=== PATIENT | female | born 1995 | race Caucasian/White ===

== ENCOUNTER → 2020-04-11 13:08 | Outpatient (BNVA) | payer OTHER, SELFPAY | PROVIDERS: Visit Provider Advanced Practice Midwife | DX: O09.219 Supervision of pregnancy with history of pre-term labor, unspecified trimester (principal); Z3A.00 Weeks of gestation of pregnancy not specified | CPT/HCPCS: 99211 ==

== ENCOUNTER → 2020-05-01 10:37 | Outpatient (BNVA) | payer OTHER, SELFPAY | PROVIDERS: PCP Internal Medicine; Visit Provider Advanced Practice Midwife | DX: Z76.89 Persons encountering health services in other specified circumstances (principal) ==

== ENCOUNTER 2020-05-03 14:36 | Outpatient (REF) | payer OTHER, SELFPAY ==
[2020-05-03 15:39] LABS: MANUAL DIFF FLAG NO
[2020-05-03 15:42] LABS: Basophils Percent Auto 0.2 % (0-2); Eosinophils Absolute Auto 0.2 X10*3/uL (0.0-0.4); Eosinophils Percent Auto 1.3 % (0-4); Hematocrit 32.4 % (37-47); Hemoglobin 11.2 g/dl (12.0-16.0); Imm Gran Abs Auto 0.06 X10*3/uL (0.00-0.03); Imm Gran Pct Auto 0.5 % (0.0-0.4); Lymphocytes Absolute Auto 1.9 X10*3/uL (1.2-4.9); Lymphocytes Percent Auto 16.6 % (20-40); Mean Corpuscular HGB Conc 34.6 g/dl (31.0-35.0); Mean Corpuscular Hemoglobin 31.3 pg (27.0-33.0); Mean Corpuscular Volume 90.5 fL (80-98); Mean Platelet Volume 10.5 fL (9.4-12.3); Monocytes Absolute Auto 0.7 X10*3/uL (0.1-1.2); Monocytes Percent Auto 6.4 % (2-11); Neutrophils Absolute Auto 8.4 X10*3/uL (2.0-8.3); Platelet Count 312 X10*3/uL (160-400); Red Blood Count 3.58 X10*6/uL (4.20-5.50); Red Cell Distribution Width 12.6 % (11.0-16.0); White Blood Count 11.2 X10*3/uL (4.8-10.8)
[2020-05-03 16:27] LABS: Amphetamine Screen Urine Not Detected (Not Detect); Barbiturates, Urine Not Detected (Not Detect); Benzodiazepines Screen Urine Not Detected (Not Detect); Cannabinoid Screen Urine POSITIVE (Not Detect); Cocaine Screen Urine Not Detected (Not Detect); Opiate Screen Urine Not Detected (Not Detect); Phencyclidine Screen Urine Not Detected (Not Detect); Syphilis Screen Nonreactive (Nonreactive)
[2020-05-03 16:31] LABS: Thyroid Stimulating Hormone 0.69 uIU/mL (0.32-4.0)
[2020-05-06 08:05] LABS: HBsAGNum1 0.28 S/CO (0.00-0.99); Hepatitis B Surface Antigen Negative (Negative)
[2020-05-06 08:30] LABS: HIV AB/AG Nonreactive (Nonreactive); HIV Num 1 0.15 S/CO (0.00-0.99); ~HepC Num1 0.11 S/CO (0.00-0.79); ~Hepatitis C Antibody Nonreactive (Nonreactive)
== END 2020-05-03 14:37 | disposition home or self-care (01) ==
LOC: HO.LAB 14:36
PROVIDERS: PCP Internal Medicine; Visit Provider Advanced Practice Midwife
DX: O26.899 Other specified pregnancy related conditions, unspecified trimester (principal); R53.83 Other fatigue
CPT/HCPCS: 36415; 80307; 84443; 85025; 86762; 86780; 86787; 86803; 86850; 86900; 86901; 87086; 87340; 87389

== ENCOUNTER 2020-05-22 09:04 | Outpatient (REF) | payer OTHER, SELFPAY ==
[2020-05-23 11:09] LABS: BV Int Neg Control Negative (Negative); BV Int Pos Control Positive (Positive)
[2020-05-25 06:37] LABS: CT PCR NOT DETECTED (Not Detect.); NG PCR NOT DETECTED (Not Detect.)
== END 2020-05-22 09:05 | disposition home or self-care (01) ==
LOC: HO.LAB 09:04
PROVIDERS: PCP Internal Medicine; Visit Provider Advanced Practice Midwife
DX: Z34.80 Encounter for supervision of other normal pregnancy, unspecified trimester (principal)
CPT/HCPCS: 87480; 87491; 87510; 87591; 87660; 88142

== ENCOUNTER 2020-05-22 10:41 | Outpatient (REF) | payer OTHER, SELFPAY ==
--- NOTE | 2020-05-22 10:49 | US_ITS ---
EXAMINATION: FIRST TRIMESTER OB ULTRASOUND CLINICAL INFORMATION: No heart tone. Check viability. COMPARISON: None TECHNIQUE: Transabdominal pelvic ultrasound was performed. FINDINGS: There is a single viable intrauterine . [place]-rump length measures 5.4 cm suggesting gestational age of 12 weeks 1 day with estimated date of delivery of 12/03/2020. heart rate is 167 bpm. A yolk sac is not seen. The maternal ovaries are normal. There is no fluid in the maternal pelvis. US/US OB <= 14 weeks fetus IMPRESSION: Single viable intrauterine . From today's measurements gestational age is estimated at 12 weeks 1 day with estimated date of delivery of 12/03/2020.
== END 2020-05-22 10:42 | disposition home or self-care (01) ==
LOC: HO.US 10:41
PROVIDERS: PCP Internal Medicine; Visit Provider Advanced Practice Midwife
DX: Z34.80 Encounter for supervision of other normal pregnancy, unspecified trimester (principal)
CPT/HCPCS: 76801; 81003; 90686

== ENCOUNTER 2020-05-31 13:34 | Outpatient (REF) | payer OTHER, SELFPAY ==
--- NOTE | 2020-05-31 13:46 | US_ITS ---
EXAMINATION: OBSTETRICAL ULTRASOUND, FIRST TRIMESTER HISTORY: 25-year-old at 13.3 weeks NT screening COMPARISON: 05/22/2020 TECHNIQUE: Real time transabdominal imaging with color and M-mode Doppler. FINDINGS: A single, live IUP CRL of 67 mm c/w 13.1wks is noted. Heart Rate: 135 beats per minute. Normal yolk sac seen. NT was 1.8.mm. NB Present The embryo appears sonographically wnl for this GA. Left ovary is within normal limits. The right ovary was not visible today. GESTATIONAL AGE: 1. Established GA: 13.3 wks 2. GA from [facility]: 13.1 wks ESTIMATED DATE OF DELIVERY: 1. Established INEZ: 12/03/2020 2. INEZ from [facility]: 12/05/2020 US/US OB 1T nuc measure IMPRESSION: 1. Single live IUP 2. Size equals dates 3. NT of 1.8 mm MFM Consultation: I reviewed the ultrasound findings along with significance of NT measurement. The NT of less than 3mm is generally reassuring. However, the sensitivity for T21 detection is only 60%. I reviewed the availability of serum aneuploidy screening which includes cell-free DNA and placental protein based tests. I discussed the sensitivity, false-positive rate, and other limitations associated with each test. I also reviewed the availability of invasive diagnostic tests that are associated small but definite risk of miscarriage. We also reviewed the differences between screening tests and diagnostic tests. After our discussion, she opted for the First trimester screening that is based on cell-free DNA or non-invasive testing (NIPT). The result will be faxed to your office in approximately 7 days. A follow up at 18 weeks for survey has been scheduled. Thank you very much for this referral. Majority of this visit was spent reviewing her care and counselling her in face to face time: Time spent 20 min.
== END 2020-05-31 13:35 | disposition home or self-care (01) ==
LOC: HO.US 13:34
PROVIDERS: PCP Internal Medicine; Visit Provider Advanced Practice Midwife
DX: Z34.01 Encounter for supervision of normal first pregnancy, first trimester (principal); Z3A.13 13 weeks gestation of pregnancy
CPT/HCPCS: 76813

== ENCOUNTER 2020-06-19 10:37 | Outpatient (REF) | payer OTHER, SELFPAY ==
[2020-06-19 12:39] LABS: Alanine Aminotransferase 43 U/L (0-31); Aspartate Amino Transferase 34 U/L (5-31); Blood Urea Nitrogen 10 mg/dL (9-16); Uric Acid 3.6 mg/dL (2.4-5.7)
[2020-06-19 13:42] LABS: Creatinine Urine 143.37 mg/dL; Protein/Creatinine Ratio, Ur 0.07 (<0.2); Total Protein Urine Random 10 mg/dL (<12)
== END 2020-06-19 10:38 | disposition home or self-care (01) ==
LOC: HO.LAB 10:37
PROVIDERS: Absent Provider Advanced Practice Midwife; PCP Internal Medicine; Visit Provider Advanced Practice Midwife
DX: O09.299 Supervision of pregnancy with other poor reproductive or obstetric history, unspecified trimester (principal)
CPT/HCPCS: 36415; 84156; 84450; 84460; 84520; 84550; 86850; 86900; 86901; 99212

== ENCOUNTER 2020-07-12 11:04 | Outpatient (REF) | payer OTHER, SELFPAY ==
--- NOTE | 2020-07-12 11:12 | US_ITS ---
EXAMINATION: US OBSTETRICAL CLINICAL INFORMATION: 25-year-old at 19.3 weeks of gestation Suspected anomaly COMPARISON: 05/31/2020 TECHNIQUE: Real-time transabdominal ultrasound was performed using C1-5 megahertz transducer. FINDINGS: A single, active, fetus is seen in vertex presentation. The placenta is posterior without previa, and the amniotic fluid volume is wnl. MEASUREMENTS: 1. Biparietal Diameter: 4.3 cm; 19.1 wks 2. Occipital Frontal Diameter: 5.5 cm 3. Head Circumference: 16.3 cm; 19.1 wks 4. Abdominal Circumference: 13.9 cm; 19.2 wks 5. Femur Length: 3.1 cm; 19.4 wks 6. Humerus Length: 2.95 cm; 19.5 wks 7. Tibia Length: 2.58 cm; 19.2 wks 8. Ulna Length: 2.7 cm; 19.5 wks 9. Lateral ventricle: 0.62 cm 10. Cerebellum: 1.84 cm; 19.1 wks 11. Cisterna Magna: 0.43 cm 12. Nuchal Fold: 2.64 mm 13. Heart Rate: 158 beats per minute Rt ovary: normal Lt ovary: normal Cervical length 3.2 cm on T/A. GESTATIONAL AGE: 1. Established GA: 19.3 wks 2. GA from [facility]: 19.2 wks ESTIMATED DATE OF DELIVERY: 1. Established INEZ: 12/03/2020 2. INEZ from [facility]: 12/04/2020 ANATOMY: The visualized anatomy includes but not limited to: 1. Cranium: Normal 2. Intracranial anatomy: cavum septum pellucidi, lateral ventricles, choroid plexus, cerebellum, posterior fossa, third and fourth ventricles. 3. face: orbits, lip/palate, profile, nasal bone 4. Heart: four-chamber view of the heart, ventricular septum, foramen ovale, pulmonary vein, left and right outflow tracts, three-vessel view, 3 vessel trachea view, aortic and ductal arches, situs.. 5. Diaphragm: Normal 6. Abdominal wall: Normal 7. Cord Insertion: Normal 8. Spine: Cervical, thoracic, lumbar, sacral. 9. Stomach: Normal size and shape 10. Right Kidney: Normal 11. Left Kidney: Normal 12. 3 vessel cord: Normal 13. Upper extremity: Open hands, fifth digit. 14. Lower extremity: Tibia, fibula, bilateral feet. 15. Bladder: Normal 16. Genitalia: Male, patient aware US/US OB /maternal detail IMPRESSION: 1. Single, living, intrauterine with appropriate biometry. 2. Normal survey DISCUSSION: I reviewed today's ultrasound findings. We discussed the limitations of ultrasound in diagnosing aneuploidy and other congenital abnormalities. I reviewed the differences between screening test and diagnostic test. Amniocentesis was discussed and declined. She was informed that the baseline incidence of congenital abnormalities is approximately 3-5%. Not all these conditions are diagnosable in utero. RECOMMENDATIONS: Thank you for allowing me to participate in her care. Visiting time 20 minutes. Majority of this visit was spent reviewing and discussing her care.
== END 2020-07-12 11:05 | disposition home or self-care (01) ==
LOC: HO.US 11:04
PROVIDERS: Visit Provider Advanced Practice Midwife
DX: Z34.80 Encounter for supervision of other normal pregnancy, unspecified trimester (principal); Z36.3 Encounter for antenatal screening for malformations
CPT/HCPCS: 76811

== ENCOUNTER → 2020-07-17 12:04 | Outpatient (BNVA) | payer OTHER, SELFPAY | PROVIDERS: Visit Provider Advanced Practice Midwife | DX: Z76.89 Persons encountering health services in other specified circumstances (principal) | CPT/HCPCS: 99212 ==

== ENCOUNTER → 2020-08-14 13:56 | Outpatient (BNVA) | payer OTHER, SELFPAY | PROVIDERS: Visit Provider Advanced Practice Midwife | DX: Z34.92 Encounter for supervision of normal pregnancy, unspecified, second trimester (principal) | CPT/HCPCS: 81003; 99212 ==

== ENCOUNTER → 2020-09-03 13:49 | Outpatient (BNVA) | payer OTHER, SELFPAY | PROVIDERS: Visit Provider Advanced Practice Midwife | DX: S30.854A Superficial foreign body of vagina and vulva, initial encounter (principal) | CPT/HCPCS: 99212 ==

== ENCOUNTER → 2020-09-11 10:44 | Outpatient (BNVA) | payer OTHER, SELFPAY | PROVIDERS: PCP Internal Medicine; Visit Provider Advanced Practice Midwife | DX: Z34.92 Encounter for supervision of normal pregnancy, unspecified, second trimester (principal); Z3A.27 27 weeks gestation of pregnancy | CPT/HCPCS: 81003; 99212 ==

== ENCOUNTER 2021-06-03 11:55 | Outpatient (REF) | payer OTHER, SELFPAY ==
[2021-06-03 12:24] LABS: MANUAL DIFF FLAG NO
[2021-06-03 13:21] LABS: Basophils Percent Auto 0.5 % (0-2); Eosinophils Absolute Auto 0.5 X10*3/uL (0.0-0.4); Hematocrit 36.5 % (37.0-47.0); Hemoglobin 12.2 g/dl (12.0-16.0); Imm Gran Abs Auto 0.02 X10*3/uL (0.00-0.03); Imm Gran Pct Auto 0.3 % (0.0-0.4); Lymphocytes Percent Auto 31.3 % (20-40); Mean Corpuscular HGB Conc 33.4 g/dl (31.0-35.0); Mean Corpuscular Hemoglobin 29.8 pg (27.0-33.0); Mean Corpuscular Volume 89.2 fL (80.0-98.0); Mean Platelet Volume 10.9 fL (9.4-12.3); Monocytes Absolute Auto 0.5 X10*3/uL (0.1-1.2); Monocytes Percent Auto 7.7 % (2-11); Neutrophils Absolute Auto 3.4 x10*3/uL (2.0-8.3); Neutrophils Percent Auto 52.2 % (45-73); Platelet Count 369 X10*3/uL (160-400); Red Blood Count 4.09 X10*6/uL (4.20-5.50); Red Cell Distribution Width 13.6 % (11.0-16.0); White Blood Count 6.4 X10*3/uL (4.8-10.8)
[2021-06-03 13:33] LABS: Alanine Aminotransferase 25 U/L (0-31); Albumin Level 4.2 g/dL (3.5-5.0); Alkaline Phosphatase 74 U/L (39-117); Amylase 92 U/L (28-100); Anion Gap 9 (12-20); Aspartate Amino Transferase 18 U/L (5-31); Bilirubin Total 0.3 mg/dL (0.0-1.0); Blood Urea Nitrogen 16 mg/dL (9-16); Calcium 9.5 mg/dL (8.4-10.2); Carbon Dioxide 28 mmol/L (22-29); Chloride 108 mmol/L (96-108); Estimated Glomerular Filt Rate > 60; Gamma Glutamyl Transpeptidase 25 U/L (7-33); Glucose Random 93 mg/dL (60-115); Potassium 4.1 mmol/L (3.3-5.1); Sodium 141 mmol/L (135-145); Total Protein 7.6 g/dL (6.5-8.0)
[2021-06-03 13:43] LABS: TSH reflex Free T4 1.22 uIU/mL (0.32-4.0)
[2021-06-03 13:56] LABS: Folate 7.2 ng/mL (> or = 4.0); Vitamin B12 490 pg/mL (200-900)
[2021-06-10 14:16] LABS: Vitamin D 25-OH, D2 <4 ng/mL; Vitamin D 25-OH, D3 19 ng/mL; Vitamin D 25-OH, Total 19 ng/mL (30-100)
== END 2021-06-03 11:56 | disposition home or self-care (01) ==
LOC: HO.LAB 11:55
PROVIDERS: PCP Internal Medicine; Visit Provider Nurse Practitioner Acute Care
DX: K21.9 Gastro-esophageal reflux disease without esophagitis (principal)
CPT/HCPCS: 36415; 80053; 82150; 82306; 82607; 82746; 82977; 84443; 85025

== ENCOUNTER 2021-09-05 17:12 | Outpatient (REF) | payer OTHER, SELFPAY ==
[2021-09-05 17:27] LABS: MANUAL DIFF FLAG NO
[2021-09-05 17:32] LABS: Basophils Percent Auto 0.3 % (0-2); Eosinophils Absolute Auto 0.5 X10*3/uL (0.0-0.4); Eosinophils Percent Auto 8.5 % (0-4); Hematocrit 34.1 % (37.0-47.0); Hemoglobin 11.4 g/dl (12.0-16.0); Imm Gran Abs Auto 0.02 X10*3/uL (0.00-0.03); Imm Gran Pct Auto 0.3 % (0.0-0.4); Lymphocytes Absolute Auto 2.3 X10*3/uL (1.2-4.9); Lymphocytes Percent Auto 37.2 % (20-40); Mean Corpuscular HGB Conc 33.4 g/dl (31.0-35.0); Mean Corpuscular Hemoglobin 29.8 pg (27.0-33.0); Mean Platelet Volume 10.2 fL (9.4-12.3); Monocytes Absolute Auto 0.6 X10*3/uL (0.1-1.2); Monocytes Percent Auto 9.3 % (2-11); Neutrophils Absolute Auto 2.7 x10*3/uL (2.0-8.3); Neutrophils Percent Auto 44.4 % (45-73); Platelet Count 295 X10*3/uL (160-400); Red Blood Count 3.83 X10*6/uL (4.20-5.50); Red Cell Distribution Width 13.1 % (11.0-16.0); White Blood Count 6.1 X10*3/uL (4.8-10.8)
[2021-09-05 18:01] LABS: Alanine Aminotransferase 17 U/L (0-31); Albumin Level 4.1 g/dL (3.5-5.0); Alkaline Phosphatase 67 U/L (39-117); Anion Gap 12 (12-20); Aspartate Amino Transferase 14 U/L (5-31); Bilirubin Total 0.5 mg/dL (0.0-1.0); Blood Urea Nitrogen 11 mg/dL (9-16); Calcium 9.4 mg/dL (8.4-10.2); Carbon Dioxide 26 mmol/L (22-29); Chloride 108 mmol/L (96-108); Estimated Glomerular Filt Rate > 60; Glucose Random 74 mg/dL (60-115); Lipase 34 U/L (8-78); Potassium 3.9 mmol/L (3.3-5.1); Sodium 142 mmol/L (135-145); Total Protein 7.4 g/dL (6.5-8.0)
[2021-09-05 18:21] LABS: Vitamin D 25-OH Total 22.3 ng/mL (>30)
== END 2021-09-05 17:13 | disposition home or self-care (01) ==
LOC: HO.LAB 17:12
PROVIDERS: PCP Internal Medicine; Visit Provider Nurse Practitioner Family
DX: R10.9 Unspecified abdominal pain (principal); E55.9 Vitamin D deficiency, unspecified
CPT/HCPCS: 36415; 80053; 82306; 83690; 85025

== ENCOUNTER 2021-09-17 11:40 | Emergency (ER) | payer OTHER, SELFPAY ==
[2021-09-17 11:55] VITALS: BP 118/72; PULSE 100; RESP 18; TEMP 36.1; O2SAT 99; BMI 23.5
--- NOTE | 2021-09-17 12:12 | ED.GENADULT ---
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 No fevers or chills. Patient has had some body aches. +cough. No vomiting, diarrhea, abdominal pain, neck pain or stiffness, headache, urinary symptoms, vaginal discharge. Patient was concerned because her sore throat began after having oral sex. Related Data Previous Rx's Medication Instructions Recorded hydrocortisone 1 % topical cream 1 appl TOPICAL TID PRN #28.4 g 06/03/21 (Anti-Itch (hydrocortisone)) omeprazole 20 mg capsule,delayed 20 mg PO DAILY #30 cap 09/05/21 release cholecalciferol (vitamin D3) 25 25 mcg PO DAILY #90 tab 09/12/21 mcg (1,000 unit) tablet (Vitamin D3) acetaminophen 325 mg tablet 650 mg PO Q4H PRN #30 tab 09/17/21 (Tylenol) amoxicillin 500 mg capsule 500 mg PO BID #20 cap 09/17/21 Allergies Allergy/AdvReac Type Severity Reaction Status Date / Time No Known Allergies Allergy Verified 09/05/21 16:40 [No Known Allergies*] Review of Systems Review of Systems: Yes all other systems are reviewed and are negative Constitutional: Constitutional: Reports no additional constitutional complaints, Reports body ache(s), Denies chills, Denies fever(s) and Denies weakness Eyes: Eyes: Reports no additional eye complaints and Denies change in vision ENT: Reports system reviewed and no additional complaints, except as documented, Denies dizziness, Denies nasal congestion, Denies nasal discharge, Denies neck pain and Reports sore throat Cardiovascular: Cardiovascular: Reports no additional cardiovascular complaints, Denies chest pain, Denies leg edema and Denies dyspnea Respiratory: Respiratory: Reports no additional respiratory complaints, Reports cough and Denies dyspnea Gastrointestinal: Gastrointestinal: Reports no additional gastrointestinal complaints, Denies abdominal pain, Denies diarrhea, Denies nausea and Denies vomiting Genitourinary: Genitourinary: Reports no additional female genitourinary complaints and Denies urinary incontinence Musculoskeletal: Musculoskeletal: Reports no additional musculoskeletal complaints, Denies back pain, Denies arthralgias, Denies joint swelling, Denies neck pain, Denies numbness and Denies tingling Integumentary/Breasts: Skin/Breast: Reports system reviewed and no additional complaints, except as docu and Denies rash Neurologic: Reports system reviewed and no additional complaints, except as documented, Denies dizziness, Denies numbness, Denies tingling and Denies weakness PMFSH Past Medical History Attestation statement: The following information was validated with the patient. Source: old records reviewed and nursing notes reviewed Medical History Anemia Gastritis GERD (gastroesophageal reflux disease) Headache Surgical History No history of previous surgery Family History Family History Mother Hx of breast cancer Hx of ovarian cancer Sister Hx of thyroid cancer Hx of ovarian cancer Father Hx of type 2 diabetes mellitus Hx of primary hypertension Maternal Grandmother Hx of ovarian cancer Hx of type 2 diabetes mellitus Maternal Grandfather No problems noted. Paternal Grandmother Hx of diabetes mellitus Hx of kidney disease Paternal Grandfather No problems noted. Brother No problems noted. Sister No problems noted. Social History Social History Household Members: Children Are you a primary resident care technician to a significant other at home: No Do you presently have visiting nurse or other home services: No Alcohol intake: never Patient Tobacco Use Status: Never used Tobacco Tobacco use type: Cigarette e-Cigarette/Vaping Use: Never Used Second Hand Smoke Exposure: No Substance Use Type: Marijuana Advance Directives: No Advance Directives Information Provided: Yes Patient : No service: No Current occupational status: unemployed Current occupational exposures/hazards: No Physical Exam ED Vital Signs: Vital Signs - 24 hr 09/17/21 11:55 Temperature 97.0 F Pulse Rate 100 Respiratory Rate 18 Blood Pressure 118/72 Pulse Oximetry 99 BMI result Body Mass Index 23.5 Const General: cooperative, healthy appearing, comfortable and no acute distress Orientation/consciousness: patient oriented x3 Limitations: no limitations HENMT Head: Yes normal to inspection Ears: hearing grossly normal bilaterally and TM's normal bilaterally General nose exam: Normal external nose present Face and sinus: Yes normal facial exam Mouth: Normal oral and palatal mucosa present Teeth and gingiva: dentition normal Throat: Yes uvula midline and Yes abnormal tonsil (bilateral erythema, swelling and exudate ) Eyes General: appearance normal, both eyes and all related structures Pupils: Equal, round and reactive pupils present Neck Neck: Yes normal visual inspection, Yes full ROM, Yes no lymphadenopathy and Yes no meningeal signs Chest Chest palpation & inspection: normal inspection of the chest Resp Effort & Inspection: normal respiratory effort Auscultation: clear to auscultation bilaterally Cardio Rate: regular rate Rhythm: regular rhythm Peripheral pulses: Peripheral pulses 2+ throughout GI Inspection: Yes normal to inspection Palpation (GI): Soft to palpation and nontender General: Yes no CVA tenderness Back/Spine/Pelvis Back: no CVA tenderness Thoracic/Lumbar Spine: thoracic and lumbar spine normal to inspection Skin General skin exam: no rashes or lesions noted Neuro General: patient oriented x3, moves all extremities and no meningeal signs Cranial nerves: Yes Equal, round and reactive pupils present Cognition (Neuro): normal cognition Extrem General: Yes normal to inspection Course Course Course Narrative: 26 yo female here with sore throat, cough, body aches x several days. Rapid strep +. Patient concerned that she had recent oral sex and thought this might be related. We discussed less likely gonococcal infection with strep testing + here. Will treat with course of antibiotics, recommend supportive care and follow-up with primary care doctor in several days for persistent symptoms Reviewed worrisome signs and symptoms of when to return to the emergency department. Comfortable discharge home Medical Decision Making Medical Records Medical records reviewed: Yes I reviewed the patient's medical records. Lab Data Lab results reviewed: Yes I reviewed the patient's lab results. Labs: Lab Results 09/17/21 Range/Units 12:02 S. pyogenes GrpA ОЛЕГ Positive A (Negative) Discharge Plan Discharge Clinical Impression: Pharyngitis Patient Disposition: Home, Self-Care Instructions: Pharyngitis (ED) Additional Instructions: Your Test is positive for strep throat saltwater gargle Alternate Motrin and Tylenol for pain Eat soft foods Prescriptions: New amoxicillin 500 mg capsule 500 mg PO BID Qty: 20 0RF acetaminophen [Tylenol] 325 mg tablet 650 mg PO Q4H PRN (Reason: pain) Qty: 30 0RF No Action cholecalciferol (vitamin D3) [Vitamin D3] 25 mcg (1,000 unit) tablet 25 mcg PO DAILY Qty: 90 0RF hydrocortisone [Anti-Itch (HC)] 1 % cream 1 appl topical TID PRN (Reason: skin irritation) Qty: 28.4 0RF omeprazole 20 mg capsule,delayed release(DR/EC) 20 mg PO DAILY Qty: 30 0RF Referrals: Pippa Saha MD [Primary Care Provider] - 5 days (For persistent symptoms) Print Language: [place]ian
[2021-09-17 12:14] LABS: Strep A Nucleic Acid Positive (Negative)
[2021-09-17] MEDS: Amoxicillin 500 MG CAPSULE PO (12:54)
== END 2021-09-17 13:05 | disposition home or self-care (01) ==
PROVIDERS: Emergency Provider Emergency Medicine Emergency Medical Services; PCP Internal Medicine
DX: M79.10 Myalgia, unspecified site (principal); R07.0 Pain in throat; R50.9 Fever, unspecified; R05.9 Cough, unspecified; F17.210 Nicotine dependence, cigarettes, uncomplicated; Z71.6 Tobacco abuse counseling; Z79.899 Other long term (current) drug therapy
CPT/HCPCS: 36415; 87651; 99283

== ENCOUNTER 2021-12-27 22:40 | Emergency (ER) | payer OTHER, SELFPAY ==
[2021-12-28 00:38] VITALS: BP 123/77; PULSE 63; RESP 16; TEMP 37; O2SAT 100; BMI 21.0
--- NOTE | 2021-12-28 01:07 | ED_ITS ---
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) Relieving factors: nothing Context: other (work exposures) Associated symptoms: nasal congestion Treatments prior to arrival: none Related Data Previous Rx's Medication Instructions Recorded hydrocortisone 1 % topical cream 1 appl topical TID PRN skin 06/03/21 (Anti-Itch (hydrocortisone)) irritation #28.4 grams acetaminophen 325 mg tablet 650 mg PO Q4H PRN pain #30 tabs 09/17/21 (Tylenol) amoxicillin 500 mg capsule 500 mg PO BID #20 caps 09/17/21 promethazine 25 mg tablet 25 mg PO BID PRN nausea and 09/18/21 vomiting 5 days #10 tabs omeprazole 20 mg capsule,delayed 20 mg PO DAILY #30 caps 11/13/21 release cholecalciferol (vitamin D3) 25 25 mcg PO DAILY #90 tabs 12/16/21 mcg (1,000 unit) tablet (Vitamin D3) amoxicillin 500 mg capsule 500 mg PO BID 7 days #14 caps 12/28/21 fluticasone propionate 50 1 spray intranasal DAILY PRN 12/28/21 mcg/actuation nasal allergy symptoms #16 grams spray,suspension Allergies Allergy/AdvReac Type Severity Reaction Status Date / Time No Known Allergies Allergy Verified 09/05/21 16:40 [No Known Allergies*] Review of Systems Review of Systems: Constitutional : No Fever, No Chills ENT/Mouth : No sore throat, No Rhinorrhea, pos sinus pain, pos congestion Eyes: No Eye Pain, No Swelling, No Redness Cardiovascular : No Chest Pain, No SOB Respiratory : No Cough, No Sputum, No Wheezing Gastrointestinal : No Nausea, No Vomiting, No Diarrhea Genitourinary : No Dysuria, No Urinary Frequency, No Hematuria, Musculoskeletal : No joint pain, No Myalgias, No Joint Swelling Skin : No Skin Lesions, No rash Neuro : No Weakness, No Numbness, No Dizziness, No Headache PMF Past Medical History Attestation statement: The following information was validated with the patient. Medical History Anemia Gastritis GERD (gastroesophageal reflux disease) Headache Surgical History No history of previous surgery Family History Family History Mother Hx of breast cancer Hx of ovarian cancer Sister Hx of thyroid cancer Hx of ovarian cancer Father Hx of type 2 diabetes mellitus Hx of primary hypertension Maternal Grandmother Hx of ovarian cancer Hx of type 2 diabetes mellitus Maternal Grandfather No problems noted. Paternal Grandmother Hx of diabetes mellitus Hx of kidney disease Paternal Grandfather No problems noted. Brother No problems noted. Sister No problems noted. Social History Social History Household Members: Children Are you a primary school childcare attendant to a significant other at home: No Do you presently have visiting nurse or other home services: No Alcohol intake: never Patient Tobacco Use Status: Never used Tobacco Tobacco use type: Cigarette e-Cigarette/Vaping Use: Never Used Second Hand Smoke Exposure: No Substance Use Type: Marijuana Advance Directives: No Advance Directives Information Provided: Yes service: No Current occupational status: unemployed Current occupational exposures/hazards: No Physical Exam Vital Signs: Vital Signs: Last Vital Signs Temp 98.6 F 12/28/21 00:38 Pulse 63 12/28/21 00:38 Resp 16 12/28/21 00:38 BP 123/77 12/28/21 00:38 Pulse Ox 100 12/28/21 00:38 O2 Del Method 12/28/21 00:38 BMI result Body Mass Index 21.0 Appearance: Alert. Oriented X3. No acute distress. Eyes: Pupils equal, round and reactive to light. ENT: Pharynx normal. boggy turbinates, facial pain over bilateral maxillary sinuses Neck: Normal inspection. Neck supple. CVS: Normal heart rate and rhythm. Pulses normal. Respiratory: No respiratory distress. Breath sounds normal. Abdomen: Soft and nontender. Skin: Skin warm and dry. Normal skin color. Normal skin turgor. Extremities: No lower extremity edema. No calf ttp Neuro: Oriented X 3. No motor deficit. No sensory deficit. MDM - URI/Sore Throat MDM Narrative Medical decision making narrative: 26 yo female with nasal pain, sinus congestion following working with chemicals at work - no resp issues thinks she is allergic to chemicals. She has boggy turbinates and facial pain hx of bacterial sinusitis in the past. At this time will swab for COVId and start on amoxicillin and fluticasone Lab Data Labs: Lab Results 12/28/21 12/28/21 Range/Units 00:52 00:52 COVID-19 ([facility]) Negative (Negative) COVID-19 Clin Com See Note Influenza Type A (ОЛЕГ) Negative (Negative) Influenza Type B (ОЛЕГ) Negative (Negative) Influenza A & B Note See Note Discharge Plan Discharge Clinical Impression: Sinusitis Qualifiers: Sinusitis location: maxillary Chronicity: acute Recurrence: non-recurrent Qualified Code(s): J01.00 - Acute maxillary sinusitis, unspecified Allergic rhinitis Qualifiers: Allergic rhinitis trigger: other Allergic rhinitis seasonality: non-seasonal Qualified Code(s): J30.89 - Other allergic rhinitis Patient Disposition: Home, Self-Care Instructions: Sinusitis (ED), Allergies (ED) Additional Instructions: return to ED for any worsening symptoms or concerns negative COVID and flu you likely have allergic reaction to chemicals at work please try to avoid Prescriptions: New amoxicillin 500 mg capsule 500 mg PO BID 7 Days Qty: 14 0RF fluticasone propionate 50 mcg/actuation spray,suspension 1 spray intranasal DAILY PRN (Reason: allergy symptoms) Qty: 16 0RF Rx Instructions: administer into each nostril No Action promethazine 25 mg tablet 25 mg PO BID PRN (Reason: nausea and vomiting) 5 Days Qty: 10 0RF omeprazole 20 mg capsule,delayed release(DR/EC) 20 mg PO DAILY Qty: 30 0RF cholecalciferol (vitamin D3) [Vitamin D3] 25 mcg (1,000 unit) tablet 25 mcg PO DAILY Qty: 90 0RF amoxicillin 500 mg capsule 500 mg PO BID Qty: 20 0RF acetaminophen [Tylenol] 325 mg tablet 650 mg PO Q4H PRN (Reason: pain) Qty: 30 0RF hydrocortisone [Anti-Itch (HC)] 1 % cream 1 appl topical TID PRN (Reason: skin irritation) Qty: 28.4 0RF Stand Alone Forms: Work/School Release
[2021-12-28 01:22] LABS: IDNOW Serial# 9DB6401D; Influenza A Negative (Negative); Influenza B2 Negative (Negative)
[2021-12-28 01:23] LABS: COVID-19 Test Negative (Negative); IDNOW Serial# 55D5AD1C
== END 2021-12-28 02:10 | disposition home or self-care (01) ==
PROVIDERS: Emergency Medicine; Emergency Provider Emergency Medicine; PCP Internal Medicine
DX: J01.00 Acute maxillary sinusitis, unspecified (principal); J30.89 Other allergic rhinitis; R09.81 Nasal congestion; Z20.822 Contact with and (suspected) exposure to COVID-19; Z79.899 Other long term (current) drug therapy
CPT/HCPCS: 87502; 87635; 99282

== ENCOUNTER 2022-05-13 11:46 | Outpatient (REF) | payer OTHER, SELFPAY ==
[2022-05-13 18:22] LABS: CT PCR NOT DETECTED (Not Detect.); NG PCR NOT DETECTED (Not Detect.)
[2022-05-14 13:58] LABS: BV Int Neg Control Negative (Negative); BV Int Pos Control Positive (Positive)
== END 2022-05-13 11:47 | disposition home or self-care (01) ==
LOC: HO.LNP 11:46
PROVIDERS: Visit Provider Advanced Practice Midwife
DX: T83.84XA Pain due to genitourinary prosthetic devices, implants and grafts, initial encounter (principal); A60.00 Herpesviral infection of urogenital system, unspecified; Z32.02 Encounter for pregnancy test, result negative; Z11.3 Encounter for screening for infections with a predominantly sexual mode of transmission; X58.XXXA Exposure to other specified factors, initial encounter
CPT/HCPCS: 58301; 81025; 87480; 87491; 87510; 87591; 87660; 99212

== ENCOUNTER → 2022-05-14 11:08 | Outpatient (BNVA) | payer OTHER, SELFPAY | PROVIDERS: Visit Provider Advanced Practice Midwife | DX: Z30.42 Encounter for surveillance of injectable contraceptive (principal) | CPT/HCPCS: 96372; 99211 ==

== ENCOUNTER 2022-05-31 08:30 | Emergency (ER) | payer OTHER, SELFPAY ==
[2022-05-31 08:33] VITALS: BP 131/91; PULSE 86; RESP 19; TEMP 36.6; O2SAT 100; BMI 20.9
--- NOTE | 2022-05-31 09:42 | ED.FEMALEGU ---
HPI - Female Genitourinary General Chief complaint: Urogenital-Female Stated complaint: Lower abd pain Time Seen by Provider: 05/31/22 09:05 Source: patient Mode of arrival: ambulatory Limitations: no limitations History of Present Illness HPI Narrative: 27-year-old primarily Tongan-speaking female with past medical history of GERD bland herpes genitalis presents to the emergency department today with a 3 day history of burning with urination and thin yellow/green vaginal discharge with an odor. She describes the pain as burning not the urethra but the external tissue near the urethra. She denies any new sexual partners however she recently from her boyfriend due to her suspicion of him being with other partners. She denies any vaginal bleeding with her LMP at the beginning of May. She denies any fever, chills, abdominal pain, nausea, vomiting. MD elicited complaint: dysuria and vaginal discharge Pertinent past history: STI/STD Onset (ago): day(s) (3) Location of symptoms: external genitalia and vaginal Quality of pain: sharp and burning Consistency: constant Vaginal discharge: yellow and other (thin yellow/green ) Vaginal bleeding: none Urinary symptoms: Dysuria Exacerbating factors: urination Relieving factors: none Associated symptoms: denies other symptoms Treatment prior to arrival: none Sexual activity: Yes Patient : No Date of Last Menstrual Period: 05/14/22 Related Data Home Medications Medication Instructions Recorded Confirmed levonorgestrel 20 mcg/24 hours (8 intrauterine 05/13/22 05/13/22 yrs) 52 mg intrauterine device (Mirena) Previous Rx's Medication Instructions Recorded medroxyprogesterone 150 mg/mL 150 mg IM Q12W #1 mL 05/13/22 intramuscular suspension (Depo-Provera) valacyclovir 1 gram tablet 1,000 mg PO DAILY #30 tabs 05/13/22 doxycycline hyclate 100 mg capsule 100 mg PO BID 7 days #14 caps 05/31/22 Allergies Allergy/AdvReac Type Severity Reaction Status Date / Time No Known Allergies Allergy Verified 05/13/22 11:48 [No Known Allergies*] Review of Systems Review of Systems: In addition to documented HPI above, the additional ROS was obtained: Constitutional: No Weight loss, No Fever, No Chills Cardiovascular: No Chest Pain, No SOB Respiratory: No Cough, No Sputum, No Wheezing Gastrointestinal: No Nausea, No Vomiting, No Diarrhea, No Constipation, No Abdominal pain Genitourinary: No Urinary Frequency, No Hematuria, No Urinary Incontinence/retention, No Urgency, No Flank Pain Musculoskeletal: No joint pain, No Myalgias, No Joint Swelling Skin: No Skin Lesions, No rash Neuro: No Weakness, No Numbness, No Paresthesias Yes all other systems are reviewed and are negative PMFSH Past Medical History Attestation statement: The following information was validated with the patient. Source: old records reviewed Medical History Anemia Gastritis GERD (gastroesophageal reflux disease) Headache Surgical History No history of previous surgery Date of Last Menstrual Period: 05/14/22 Family History Family History Mother Hx of breast cancer Hx of ovarian cancer Sister Hx of thyroid cancer Hx of ovarian cancer Father Hx of type 2 diabetes mellitus Hx of primary hypertension Maternal Grandmother Hx of ovarian cancer Hx of type 2 diabetes mellitus Maternal Grandfather No problems noted. Paternal Grandmother Hx of diabetes mellitus Hx of kidney disease Paternal Grandfather No problems noted. Brother No problems noted. Sister No problems noted. Social History Social History Household Members: Children Are you a primary laboratory animal care veterinarian to a significant other at home: No Do you presently have visiting nurse or other home services: No Alcohol intake: never Patient Tobacco Use Status: Never used Tobacco Tobacco use type: Cigarette e-Cigarette/Vaping Use: Never Used Second Hand Smoke Exposure: No Substance Use Type: Marijuana Advance Directives: No Advance Directives Information Provided: Yes Patient : No service: No Current occupational status: employed Current occupational exposures/hazards: No Cognitive needs: No Hearing needs: No Vision needs: No Physical Exam Vital Signs: Vital Signs: Last Vital Signs Temp 98 F 05/31/22 08:33 Pulse 86 05/31/22 08:33 Resp 19 05/31/22 08:33 BP 131/91 H 05/31/22 08:33 Pulse Ox 100 05/31/22 08:33 O2 Del Method 12/18/22 08:33 BMI result Body Mass Index 20.9 Const: General: cooperative, alert and awake Nutritional Appearance: well nourished Orientation/consciousness: patient oriented x3 Limitations: language barrier HEENT: Head: Yes normal to inspection, Yes normocephalic and Yes atraumatic Ears: hearing grossly normal bilaterally General nose exam: Normal external nose present Face and sinus: Yes normal facial exam and Yes face symmetric Eyes: General: appearance normal, both eyes and all related structures Visual Manzo: normal visual manzo by confrontation Alignment and Position: alignment normal Periorbital: periorbital findings normal Eyelids: Yes eyelids normal Conjunctivae: conjunctivae normal Sclerae: sclerae normal Corneas: corneas normal Pupils: Equal, round and reactive pupils present EOM: EOMs intact bilaterally Neck: Neck: Yes normal visual inspection, Yes full ROM and Yes no lymphadenopathy Chest: Chest palpation & inspection: normal inspection of the chest Resp: Effort & Inspection: normal respiratory effort and not labored Auscultation: clear to auscultation bilaterally, no crackles, no rhonchi and no wheezes Cardio: Rate: regular rate Rhythm: regular rhythm GI: Inspection: Yes normal to inspection Palpation (GI): Soft to palpation and nontender Auscultation: normal bowel sounds : External Female Exam: normal appearance of the urethra, externally tender, No lesion and No laceration Speculum Exam - Vagina: abnormal vaginal discharge (thin yellow/green ) Speculum Exam - Cervix: Cervical tenderness present Bimanual exam- vagina & uterus: Cervical tenderness present Back/Spine/Pelvis: Cervical Spine: cervical ROM normal Thoracic/Lumbar Spine: thoraco-lumbar ROM normal Skin: General skin exam: no rashes or lesions noted Neuro: General: patient oriented x3 Cranial nerves: Yes Equal, round and reactive pupils present Cognition (Neuro): normal cognition Gait exam (Neuro): Normal gait present Motor exam (neuro): 5/5 motor strength present throughout Extrem: General: Yes normal to inspection, Yes full ROM and Yes capillary refill normal Psych: Appearance: grossly normal Mental Status: mental status grossly normal Speech and movement: Normal speech and movement present Affect: normal affect Attitude: cooperative Thought process: Normal thought process present Thought content: Normal thought content present Medications Administered Discontinued Medications Generic Name Dose Route Start Last Admin Trade Name Freq PRN Reason Stop Dose Admin Ceftriaxone Sodium 500 mg/ 0 mg 05/31/22 09:39 05/31/22 09:46 Lidocaine HCl 1 ml IM 05/31/22 09:40 500 kit ONCE ONE Administration Doxycycline Monohydrate 100 mg 05/31/22 09:40 05/31/22 09:46 Doxycycline Monohydrate 100 Mg Capsule PO 05/31/22 09:41 100 mg ONCE ONE Administration Medical Decision Making Medical Decision Making MDM Narrative: 27-year-old primarily Tongan-speaking female with past medical history of GERD bland herpes genitalis presents to the emergency department today with a 3 day history of burning with urination and thin yellow/green vaginal discharge with an odor. External vaginal exam showing reddened tissue near urethra, urethra without redness or drainage. Initial exam of vagina with normal looking tissue. No reddness or bleeding. Thin yellow/green vaginal discharge present at introitus of the vagina. Lubricated speculum inserted into vagina to continue exam, however; pt visibly uncomfortable and asking to stop exam. Vaginal swabs obtained to rule in/out STIs as cause of discomfort. Trichomonas swab negative. Urinalysis unremarkable for signs of infection or . Pending swab results for gonorrhea, chlamydia, and bacterial vaginosis. Will contact patient with results once received. Patient safe for discharge. 500 mg IM ceftriaxone given for treatment of presumed gonorrhea and started on doxycycline for treatment of chlamydia with 7 day course doxycycline prescribed to her preferred pharmacy. Educated that we will contact her for results of testing. Educated to inform her current and recent sexual partners of presumed STI so that treatment may be started for partners. HPI, PE, diagnostics, and plan discussed with patient with no unanswered questions at this time. Educated to return to the emergency department with fevers, chills, vaginal discomfort, increased difficulty urinating due to pain, or any other concerning emergent symptom. Recommended follow-up with her primary care provider and physician gynecologist provider for further treatment and follow-up. Lab Data Labs: Lab Results 05/31/22 05/31/22 Range/Units 10:38 10:39 Urine Color Yellow Urine Appearance Clear Urine pH 5.5 (5.0-9.0) Ur Specific [place] 1.025 (1.005-1.025) Urine Protein Negative (Neg-Trace) mg/dL Urine Glucose (UA) Negative (Negative) mg/dL Urine Ketones Negative (Negative) mg/dL Urine Blood Negative (Negative) Urine Nitrite Negative (Negative) Ur Leukocyte Esterase Moderate (2+) H (Negative) Urine RBC 0-2 (0-2) /HPF Urine WBC 0-5 (0-5) /HPF Ur Squamous Epith Cells 0-2 (0-2) /HPF Urine Bacteria None Seen (None Seen) Hyaline Casts 0-2 (0-2) /LPF Urine Test NEGATIVE (NEGATIVE) Discharge Plan Discharge Clinical Impression: STI (sexually transmitted infection), Gonorrhea, Chlamydia, Bacterial vaginosis Patient Disposition: Home, Self-Care Instructions: Vaginal Discharge (ED), Gonorrhea (ED), Bacterial Vaginosis (ED) Prescriptions: New doxycycline hyclate 100 mg capsule 100 mg PO BID 7 Days Qty: 14 0RF No Action Mirena 20 mcg/24 hours (8 yrs) 52 mg intrauterine device intrauterine medroxyprogesterone [Depo-Provera] 150 mg/mL suspension 150 mg IM Q12W Qty: 1 5RF valacyclovir 1 gram tablet 1,000 mg PO DAILY Qty: 30 0RF Rx Instructions: take 1 tablet daily for 3-5 days for outbreak of herpes Referrals: Pippa Saha MD [Primary Care Provider] - Jhon Murray MD [Physician] - Stand Alone Forms: Work/School Release Print Language: Irish
[2022-05-31] MEDS: cefTRIAXone sodium 500 MG, Lidocaine HCl 1 % MPF 1 ML IM (09:46)
[2022-05-31] MEDS: Doxycycline Monohydrate 100 MG CAPSULE PO (09:46)
--- NOTE | 2022-05-31 10:07 | PC.NURSE ---
Nurse practitioner tried to do pelvic exam. pt did not tolerated it and jumped back. practitioner swabbed pt and samples were sent to lab. admin oral and IM antibiotics.
--- NOTE | 2022-05-31 10:40 | PC.NURSE ---
pt. able to urinate. sent urine samples to lab
[2022-05-31 10:49] LABS: Appearance Urine Clear; Color Urine Yellow; Glucose Urine UA Negative (Negative); Leukocyte Esterase Urine Moderate (2+) (Negative); Nitrite Urine Negative (Negative); PH 5.5 (5.0-9.0); Specific Gravity - Urine 1.025 (1.005-1.025); UMIC TRIGGER UACC YES; Urine Blood Negative (Negative); Urine Ketones Negative (Negative); Urine Protein Negative (Neg-Trace)
[2022-05-31 10:50] LABS: UPreg QC Valid YES; Urine Pregnancy NEGATIVE (NEGATIVE)
[2022-05-31 11:05] LABS: Bacteria Urine None Seen (None Seen); Hyaline Casts Urine 0-2 /LPF (0-2); RBC Urine 0-2 /HPF (0-2); Squamous Epithelial Cell Urine 0-2 /HPF (0-2); WBC Urine 0-5 /HPF (0-5)
[2022-05-31 11:45] LABS: CT PCR NOT DETECTED (Not Detect.); NG PCR NOT DETECTED (Not Detect.)
[2022-05-31 14:22] LABS: BV Int Neg Control Negative (Negative); BV Int Pos Control Positive (Positive)
== END 2022-05-31 11:19 | disposition home or self-care (01) ==
PROVIDERS: Nurse Practitioner Family; Emergency Provider Emergency Medicine; PCP Internal Medicine
DX: A54.9 Gonococcal infection, unspecified (principal); N76.0 Acute vaginitis; M54.50 Low back pain, unspecified; R30.0 Dysuria; Z79.899 Other long term (current) drug therapy
CPT/HCPCS: 81001; 81025; 87086; 87480; 87491; 87510; 87591; 87660; 96372; 99284; J0696

== ENCOUNTER → 2022-08-14 13:14 | Outpatient (BNVA) | payer OTHER, SELFPAY | PROVIDERS: PCP Internal Medicine; Visit Provider Advanced Practice Midwife | DX: Z30.42 Encounter for surveillance of injectable contraceptive (principal) | CPT/HCPCS: 96372; 99211 ==

== ENCOUNTER → 2022-11-11 11:07 | Outpatient (BNVA) | payer OTHER, SELFPAY | PROVIDERS: PCP Internal Medicine; Visit Provider Advanced Practice Midwife | DX: Z30.42 Encounter for surveillance of injectable contraceptive (principal) | CPT/HCPCS: 96372; 99211 ==

== ENCOUNTER 2023-06-15 09:38 | Emergency (ER) | payer OTHER, SELFPAY ==
--- NOTE | 2023-06-15 10:36 | PC.NURSE ---
no answer from triage [id number]
== END 2023-06-15 14:06 | disposition left against medical advice (07) ==
PROVIDERS: Emergency Provider Emergency Medicine; PCP Internal Medicine
DX: O03.6 Delayed or excessive hemorrhage following complete or unspecified spontaneous abortion (principal); Z53.21 Procedure and treatment not carried out due to patient leaving prior to being seen by health care provider

== ENCOUNTER 2023-11-25 09:44 | Outpatient (REF) | payer OTHER, SELFPAY ==
[2023-11-26 03:24] LABS: CT PCR NOT DETECTED (Not Detect.); NG PCR NOT DETECTED (Not Detect.)
[2023-11-26 10:41] LABS: Bacterial Vaginosis PCR POSITIVE (Negative); Candida Group PCR DETECTED (Not Detect); Candida glab krusei PCR NOT DETECTED (Not Detect); Trichomonas vaginalis PCR NOT DETECTED (Not Detect)
[2023-12-01 20:44] LABS: HPV mRNA E6/E7 rflx Not Detected (Not Detected)
== END 2023-11-25 09:45 | disposition home or self-care (01) ==
LOC: HO.LAB 09:44
PROVIDERS: PCP Internal Medicine; Visit Provider Advanced Practice Midwife
DX: Z01.419 Encounter for gynecological examination (general) (routine) without abnormal findings (principal); N89.8 Other specified noninflammatory disorders of vagina; R68.82 Decreased libido; R32 Unspecified urinary incontinence; M62.89 Other specified disorders of muscle; Z11.3 Encounter for screening for infections with a predominantly sexual mode of transmission; Z97.5 Presence of (intrauterine) contraceptive device
CPT/HCPCS: 0352U; 0353U; 87624; 88142

== ENCOUNTER 2023-11-25 09:44 | Outpatient (AMB) | payer OTHER, SELFPAY ==
--- NOTE | 2023-11-25 09:51 | A.OFFVIS_ITS ---
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 She says that it has been going on for years but got worse since she had her last child 3 years ago where she has trouble holding her P and sometimes she goes to pee and just a little comes out. She says the problem is longstanding . She would 2 vaginal births and 1 C section. She said she spoke with doctors about this years ago but she does not remember where it might of been at [facility]. She was on Depo but missed appointments because she was living in [place] and she could not get seen there for Depo because she did not have a PCC and could not get seen soon enough. She ended [facility] [place] [facility] 10 [facility]. She says they put in an IUD right after that. She still is sexually active with the partner who did not want her to have a baby. She also complains of decreased lubrication and interest in sex. She describes stressful challenges. She has looking for a way to move back to [place] as her family is here, [facility] Medical History Encounter for supervision of normal in second trimester Supervision of other normal heartbeat not heard Gastritis GERD (gastroesophageal reflux disease) Headache Anemia Hx of pre-eclampsia in prior , currently Surgical History No history of previous surgery Family History Mother Hx of breast cancer Hx of ovarian cancer Sister Hx of thyroid cancer Hx of ovarian cancer Father Hx of type 2 diabetes mellitus Hx of primary hypertension Maternal Grandmother Hx of ovarian cancer Hx of type 2 diabetes mellitus Maternal Grandfather No problems noted. Paternal Grandmother Hx of diabetes mellitus Hx of kidney disease Paternal Grandfather No problems noted. Brother No problems noted. Sister No problems noted. Social History Household Members: Children Both parents involved: No Caregiver staying overnight: No Are you a primary medicare contact specialist to a significant other at home: No Do you presently have visiting nurse or other home services: No 75 years or older and lives alone: No Alcohol intake: never Patient Tobacco Use Status: Never used Tobacco Tobacco use type: Cigarette e-Cigarette/Vaping Use: Never Used Second Hand Smoke Exposure: No Substance Use Type: Marijuana service: No Current occupational status: employed Current occupational exposures/hazards: No Cognitive needs: No Hearing needs: No Vision needs: No Female Reproductive History Menstrual Age of Menarche: 14 Duration of menses: <3 days Date of last menstrual period: 11/10/23 control method: progestin IUCD Total pregnancies: 4 Full term: 3 Date of last pap smear: 06/02/20 (negative) History of abnormal pap smear: No Physical Exam Vital Signs: Last Vital Signs BP 112/62 11/25/23 09:52 BMI result Body Mass Index 24.5 Const General: healthy appearing, comfortable, no acute distress, well developed and alert Nutritional Appearance: average body habitus Orientation/consciousness: patient oriented x3 Limitations: no limitations HEENT Head: Yes normocephalic Neck Neck: Yes normal visual inspection Chest Chest palpation & inspection: normal inspection of the chest Breast/axilla inspection: normal inspection of the breasts and normal inspection of the axillae Breast/axilla palpation: normal palpation of the breasts and normal palpation of the axillae Resp Effort & Inspection: normal respiratory effort GI Inspection: Yes normal to inspection, No Abdominal wall edema and No distended Palpation (GI): Soft to palpation and nontender Other: External exam within normal limits with jewelry. Vagina pink and moist scant whitish mucus consistent with levonorgestrel effect cervix multiparous pink smooth healthy appearing with Mirena strings visible. Uterus small midposition mobile nontender adnexa nontender fairly good tone Kegel elicited. General: Yes bladder normal to palpation External Female Exam: normal external appearance and normal appearance of the urethra Speculum Exam - Vagina: normal appearance of the vagina, normal palpation and normal vaginal discharge Speculum Exam - Cervix: normal appearance of the cervix, normal palpation and nontender Bimanual exam- vagina & uterus: normal bimanual exam, normal palpation, uterine size normal, bladder normal to palpation, consistency normal, normal palpation, uterine mobility normal, uterine shape normal, No Cervical tenderness present, non-tender and no cervical motion tenderness Bimanual Exam- Adnexa, other: normal adnexae, no masses, normal and No adnexal tenderness Neuro General: patient oriented x3 Assessment & Plan Assessment & Plan (1) Depression: Code(s): F32.A - Depression, unspecified Category: Medical (2) Well woman exam with routine gynecological exam: Code(s): Z01.419 - Encounter for gynecological examination (general) (routine) without abnormal findings Category: Medical (3) Decreased libido: Code(s): R68.82 - Decreased libido Category: Medical (4) Urinary incontinence: Code(s): R32 - Unspecified urinary incontinence Category: Medical (5) Presence of 52 mg levonorgestrel-releasing intrauterine device (IUD): Code(s): Z97.5 - Presence of (intrauterine) contraceptive device Category: Social Hx Plan -----Discussed in this visit the following: healthy balanced diet, regular and consistent exercise, getting recommended health screens, doing the best she can for her particular health concerns, kegel exercises, pap smear screening and followup recommendations, mammography screening and SBE, normal changes in cycles in her life stage--- .This note is constructed using voice recognition software. While every effort has been made to ensure accuracy, machine precision engraver errors may have been included. Discussed with patient the importance of not holding her urine frequently emptying her bladder and attempting to fully empty her bladder I reviewed Kegel's with her and I am placing a referral for felt pelvic floor therapy she does believe she can drive from [place] to come for appointments. I also discussed with her the normal side effects of most methods of control have hormones in them in terms of sometimes decreasing libido however it would be very difficult to blame the Mirena for this as she is living in a difficult life circumstance [place] she [place] have family in and is in fact involved with somebody who did not want to have a baby with her and she does not wish to be at this time so she does need this reliable method of control so she does not end up with another unplanned . Reviewed the use of [id number] water-based lubricants and she says they do not really work well for her but they are best available for now. More importantly I am also placing a referral for her for therapy counseling at [facility] where she used to go discussed the more likely effects of all the stressors in her life on decreased libido and that when we have major stressors in her life around half-way and life choices an everything else sometimes libido is affected. Orders: Orders Pap Smear Today Z01.419 - Encounter for gynecological examination (general) (routine) without abnormal findings CT NG by PCR Today Z11.3 - Encounter for screening for infections with a predominantly sexual mode of transmission Bacterial Vaginosis Panel Today N89.8 - Other specified noninflammatory disorders of vagina Referrals Counseling Referral F32.A - Depression, unspecified Pelvic Ship Mate Referral M62.89 - Other specified disorders of muscle Coding Level of Care Code Est Pt Prev Care [id number]) Diagnoses Depression F32.A Well woman exam with routine gynecological exam Z01.419 Decreased libido R68.82 Urinary incontinence R32 Presence of 52 mg levonorgestrel-releasing intrauterine device (IUD) Z97.5
[2023-11-25 09:52] VITALS: BP 112/62; BMI 24.5
== END 2023-11-25 10:45 | disposition home or self-care (01) ==
LOC: HO.HWSM 09:44
PROVIDERS: PCP Internal Medicine; Visit Provider Advanced Practice Midwife
DX: Z01.419 Encounter for gynecological examination (general) (routine) without abnormal findings (principal); R68.82 Decreased libido; R32 Unspecified urinary incontinence; F32.A Depression, unspecified; Z97.5 Presence of (intrauterine) contraceptive device
CPT/HCPCS: 99395